=== PATIENT | female | born 1975 | race American Indian/Alaskan Native ===

== ENCOUNTER 2017-06-18 14:10 | Emergency (ER) | payer SELFPAY ==
[2017-06-18 14:32] VITALS: BP 155/87
[2017-06-18 15:06] LABS: Basophils % (Auto) 0.8 % (0.0-1.8); Eosinophils % (Auto) 2.1 % (0.0-4.3); Mean Corpuscular HGB Conc 29 % (30-34); Platelet Count 330 K/mm3 (140-440); Red Blood Count 3.46 M/mm3 (3.65-5.03); White Blood Count 11.3 K/mm3 (4.5-11.0)
[2017-06-18 15:08] LABS: Hematocrit 21.9 % (30.3-42.9); Hemoglobin 6.3 gm/dl (10.1-14.3); Mean Corpuscular Hemoglobin 18 pg (28-32); Mean Corpuscular Volume 63 fl (79-97); Red Cell Distribution Width 24.3 % (13.2-15.2)
== END 2017-06-18 20:08 | disposition left against medical advice (07) ==
LOC: ED 14:10
DX: Z53.21 Procedure and treatment not carried out due to patient leaving prior to being seen by health care provider (principal)
CPT/HCPCS: 36415; 84702; 85025; 86850; 86900; 86901